=== PATIENT | female | born 1995 | race African-American/Black ===

== ENCOUNTER 2018-10-19 18:45 | Emergency (ER) | payer MEDICAID, OTHER ==
[~2018-10-19] VITALS: Ht 160 cm; Wt 102.1 kg
--- NOTE | 2018-10-19 19:04 | PHYS DOC ---
Adult General Chief Complaint Chief Complaint redness under axilla HPI HPI 23 years old and presented emergency department with redness and there are the left arm stated this been going on for about a week she stated that she had a abscess in the past on the right side this does not look like it. No fever no chills no chest pain Review of Systems Review of Systems Constitutional: Denies fever or chills [] Eyes: Denies change in visual acuity, redness, or eye pain [] HENT: Denies nasal congestion or sore throat [] Respiratory: Denies cough or shortness of breath [] Cardiovascular: No additional information not addressed in HPI [] GI: Denies abdominal pain, nausea, vomiting, bloody stools or diarrhea [] : Denies dysuria or hematuria [] Musculoskeletal: Denies back pain or joint pain [] Integument: Denies rash or skin lesions [] Neurologic: Denies headache, focal weakness or sensory changes [] Endocrine: Denies polyuria or polydipsia [] All other systems were reviewed and found to be within normal limits, except as documented in this note. Physical Exam Physical Exam Constitutional: Well developed, well nourished, no acute distress, non-toxic appearance. [] HENT: Normocephalic, atraumatic, bilateral external ears normal, oropharynx moist, no oral exudates, nose normal. [] Eyes: PERRLA, EOMI, conjunctiva normal, no discharge. [] Neck: Normal range of motion, no tenderness, supple, no stridor. [] Cardiovascular:Heart rate regular rhythm, no murmur [] Lungs & Thorax: Bilateral breath sounds clear to auscultation [] Abdomen: Bowel sounds normal, soft, no tenderness, no masses, no pulsatile masses. [] Skin: Warm, dry, no erythema, no rash. [] Back: No tenderness, no CVA tenderness. [] Extremities: No tenderness, no cyanosis, no clubbing, ROM intact, no edema. [] Neurologic: Alert and oriented X 3, normal motor function, normal sensory function, no focal deficits noted. [] Psychologic: Affect normal, judgement normal, mood normal. [] EKG EKG [] Radiology/Procedures Radiology/Procedures [] Course & Med Decision Making Course & Med Decision Making Pertinent Labs and Imaging studies reviewed. (See chart for details) [] Final Impression Final Impression [] Problems: (1) Folliculitis Dragon Disclaimer Dragon Disclaimer This electronic medical record was generated, in whole or in part, using a voice recognition dictation system. KEILY RIVAS MD Oct 19, 2018 19:04
[2018-10-19] MEDS ORDERED: CLIN150C14 PO (19:10)
[2018-10-19 19:14] VITALS: BP 131/76
== END 2018-10-19 19:15 | disposition home or self-care (01) ==
LOC: ER 18:45
DX: L73.9 Follicular disorder, unspecified (principal)
CPT/HCPCS: 81025; 99283

== ENCOUNTER 2019-04-11 23:44 | Emergency (ER) | payer OTHER ==
[~2019-04-11] VITALS: Ht 160 cm; Wt 104.2 kg
[~2019-04-11 23:44] MED LIST: CLIN150C14 PO
[2019-04-12] MEDS ORDERED: CLIN300C8 PO (00:31)
--- NOTE | 2019-04-12 00:39 | PHYS DOC ---
Past History Past Medical History: No Pertinent History Past Surgical History: No Surgical History Alcohol Use: None Drug Use: None Adult General Chief Complaint Chief Complaint: SKIN RASH/ABSCESS HPI HPI 23-year-old female presents with abscess on her abdomen. The patient states she has had this bump for about 1 week, but is getting more painful last 2 days. It is now very tender to the touch. She has a history of skin infection in her underarm in the past. She is not sure if it was MRSA. She had an I&D and was on antibiotics. The patient is 28 weeks . She is not having any issues with the baby. She denies any other abscesses or skin lesions. She denies fever or chills. Review of Systems Review of Systems Constitutional: Denies fever or chills [] Eyes: Denies change in visual acuity, redness, or eye pain [] HENT: Denies nasal congestion or sore throat [] Respiratory: Denies cough or shortness of breath [] Cardiovascular: No additional information not addressed in HPI [] GI: Denies abdominal pain, nausea, vomiting, bloody stools or diarrhea [] : Denies dysuria or hematuria [] Musculoskeletal: Denies back pain or joint pain [] Integument: Abscess lower abdomen[] Neurologic: Denies headache, focal weakness or sensory changes [] Endocrine: Denies polyuria or polydipsia [] All other systems were reviewed and found to be within normal limits, except as documented in this note. Allergies Allergies Allergies Uncoded Allergies Type Severity Reaction Last Updated Verified PENICILLIN Allergy Intermediate rash 11/24/18 Physical Exam Physical Exam Constitutional: Well developed, well nourished, no acute distress, non-toxic appearance. [] HENT: Normocephalic, atraumatic, bilateral external ears normal, oropharynx moist, no oral exudates, nose normal. [] Eyes: PERRLA, EOMI, conjunctiva normal, no discharge. [] Neck: Normal range of motion, no tenderness, supple, no stridor. [] Cardiovascular:Heart rate regular rhythm, no murmur [] Lungs & Thorax: Bilateral breath sounds clear to auscultation [] Abdomen: Bowel sounds normal, soft, no tenderness, no masses, no pulsatile masses. [] Skin: One centimeter fluctuant abscess of the lower abdomen without surrounding cellulitis[] Back: No tenderness, no CVA tenderness. [] Extremities: No tenderness, no cyanosis, no clubbing, ROM intact, no edema. [] Neurologic: Alert and oriented X 3, normal motor function, normal sensory function, no focal deficits noted. [] Psychologic: Affect normal, judgement normal, mood normal. [] EKG EKG [] Radiology/Procedures Radiology/Procedures [] Course & Med Decision Making Course & Med Decision Making Pertinent Labs and Imaging studies reviewed. (See chart for details) The patient had a small abscess. I performed an incision and drainage. See note below for details. I will place the patient on clindamycin 5 days. We will give her first dose in the ED. She is stable for discharge at this time. [] Dragon Disclaimer Dragon Disclaimer This electronic medical record was generated, in whole or in part, using a voice recognition dictation system. Incision and Drainage Indication: One centimeter fluctuant abscess on the lower abdomen Procedure: Consent was obtained from the patient for the incision and drainage procedure. The patient was positioned appropriately and the skin over the incision site was prepped with alcohol. 0.5 mL of 1% lidocaine with epinephrine was used for anesthesia. A 5mm incision was then made with an 11 blade, a mo derate amount of purulent material was expressed. Loculations were broken up with a sterile Q-tip. The drainage cavity was then expressed until empty. A clean dressing was applied over the area. The patients tetanus status is up-to-date.. The patient tolerated the procedure well:]. Complications: [None Departure Departure: Impression: Primary Impression: Abscess, abdomen Additional Impression: Disposition: 01 HOME, SELF-CARE Condition: STABLE Referrals: PCP,NO (PCP) Patient Instructions: Abscess, [id number] Script[facility] Clindamycin Hcl (CLINDAMYCIN HCL) 300 Mg Capsule 1 CAP PO TID for abscess for 5 Days, #15 CAP Prov: CALI LINDSAY DO 04/12/19 Problem Qualifiers Additional Impression: Weeks of gestation: 28 weeks Qualified Codes: Z3A.28 - 28 weeks gestation of CALI LINDSAY DO April 12, 2019 00:39
[2019-04-12] MEDS ORDERED: ACET500T68 PO (00:47)
[2019-04-12] MEDS ORDERED: PNV11TAB5 PO (00:47)
[2019-04-12 00:50] VITALS: BP 122/72
[2019-04-12] MEDS ORDERED: CLINDAMYCIN HCL 150 MG CAPSULE PO ONE (01:00)
== END 2019-04-12 00:51 | disposition home or self-care (01) ==
LOC: ER 23:44 → MERGE 23:44 → ER 04-12 00:51
DX: O99.713 Diseases of the skin and subcutaneous tissue complicating pregnancy, third trimester (principal); L02.211 Cutaneous abscess of abdominal wall; Z3A.28 28 weeks gestation of pregnancy; Z88.0 Allergy status to penicillin
CPT/HCPCS: 10060; 87071; 87075; 87186; 99283; 99284